=== PATIENT | female | born 1940 | race Caucasian/White ===

== ENCOUNTER 2017-03-16 21:07 | Inpatient (IN) | payer OTHER ==
[~2017-03-16] VITALS: Ht 157.5 cm; Wt 84.6 kg
[2017-03-17] VITALS (7 sets, daily range): BP systolic 111–136; BP diastolic 51–60; Ht 157.5 cm; Wt 84.6 kg
[2017-03-17 03:43] LABS: BASOPHIL % 0.2 % (0-2); PLATELET COUNT 164 x10^3mcL (130-400)
[2017-03-17 03:52] LABS: CARBON DIOXIDE 31.8 mmol/L (21-32); CHLORIDE SERUM 96 mmol/L (98-107); CREATININE SERUM 1.1 mg/dL (0.6-1.0); GLUCOSE SERUM 177 mg/dL (74-106); SODIUM SERUM 136 mmol/L (136-145)
[2017-03-17 03:59] LABS: ALBUMIN 3.5 g/dL (3.4-5.0); ALKALINE PHOSPHATASE 80 U/L (46-116); ALT/SGPT 20 U/L (14-59); AST/SGOT 20 U/L (15-37); BILIRUBIN TOTAL 0.5 mg/dL (0.20-1.00); CHOLESTEROL 145 mg/dL (<200); HDL CHOLESTEROL 54 mg/dL (40-60); TOTAL PROTEIN, SERUM 7.9 g/dL (6.4-8.2)
[2017-03-17 07:08] LABS: PHOSPHOROUS 4.8 mg/dL (2.5-4.9)
[2017-03-17 07:17] LABS: FREE T4 1.28 ng/dL (0.76-1.46)
[2017-03-17 07:20] LABS: T3 TOTAL 0.87 ng/mL
[2017-03-17 07:29] LABS: CHOLESTEROL/HDL RATIO 2.6
[2017-03-17 07:37] LABS: T4(THYROXINE) 9.4 ug/dL (4.7-13.3)
[2017-03-17 08:24] LABS: MAGNESIUM 2.1 mg/dL (1.8-2.4)
[2017-03-17] MEDS ORDERED: SIMVASTATIN10 M1 PO (08:53)
[2017-03-17] MEDS ORDERED: NEURONTIN100 MG PO (08:54)
[2017-03-17] MEDS ORDERED: METFORMIN HCL500 MG PO (08:56)
[2017-03-17 11:17] LABS: microscopic required? YES; urine erythrocyte 1+ (NEGATIVE)
[2017-03-18 05:44] VITALS: BP 135/61
[2017-03-18 06:45] LABS: BASOPHIL % 0.2 % (0-2); PLATELET COUNT 136 x10^3mcL (130-400); RED CELL DISTRIBUTION WIDTH 13.4 % (11.5-14.5)
[2017-03-18 07:27] LABS: CALCIUM 8.5 mg/dL (8.5-10.1); CARBON DIOXIDE 29.6 mmol/L (21-32); CHLORIDE SERUM 105 mmol/L (98-107); CREATININE SERUM 0.6 mg/dL (0.6-1.0); GLUCOSE SERUM 165 mg/dL (74-106); MAGNESIUM 1.8 mg/dL (1.8-2.4); PHOSPHOROUS 3.1 mg/dL (2.5-4.9); POTASSIUM SERUM 4.2 mmol/L (3.5-5.1); SODIUM SERUM 142 mmol/L (136-145)
[2017-03-18 09:08] VITALS: BP 116/54
[2017-03-18 12:05] VITALS: BP 126/59
[2017-03-18 16:15] VITALS: BP 114/56
[2017-03-18 22:21] VITALS: BP 111/57
[2017-03-19 05:50] VITALS: BP 121/56
[2017-03-19 09:04] LABS: BASOPHIL % 0.3 % (0-2); PLATELET COUNT 136 x10^3mcL (130-400); RED CELL DISTRIBUTION WIDTH 13.3 % (11.5-14.5)
[2017-03-19 09:28] LABS: CALCIUM 8.6 mg/dL (8.5-10.1); CARBON DIOXIDE 32.4 mmol/L (21-32); CHLORIDE SERUM 104 mmol/L (98-107); CREATININE SERUM 0.7 mg/dL (0.6-1.0); GLUCOSE SERUM 179 mg/dL (74-106); MAGNESIUM 1.6 mg/dL (1.8-2.4); POTASSIUM SERUM 4.3 mmol/L (3.5-5.1); SODIUM SERUM 143 mmol/L (136-145)
[2017-03-19 09:55] VITALS: BP 149/69
[2017-03-19] MEDS ORDERED: TAM75 PO (10:22)
[2017-03-19] MEDS ORDERED: ECO81 PO (10:23)
[2017-03-19] MEDS ORDERED: LAC PO (10:37)
[2017-03-19] MEDS ORDERED: LEVAQUIN750 MG PO (10:41)
[2017-03-19] MEDS ORDERED: ROBITUSSIN W/CODEINE PO (10:44)
[2017-03-19] MEDS ORDERED: LOTREL1 CA2 PO (12:10)
[2017-03-19] MEDS ORDERED: AUG500 PO (13:27)
[2017-03-19] MEDS ORDERED: FLA500 PO (13:27)
[2017-03-19 13:50] VITALS: BP 125/59
[2017-03-19] MEDS ORDERED: ROBL PO (16:10)
== END 2017-03-19 16:33 | disposition home or self-care (01) | DRG 177 ==
LOC: ED 21:07 → DU 03-17 02:59
PROVIDERS: Emergency Medicine; Family Medicine
DX: J69.0 Pneumonitis due to inhalation of food and vomit (principal); N17.0 Acute kidney failure with tubular necrosis; J09.X2 Influenza due to identified novel influenza A virus with other respiratory manifestations; M94.0 Chondrocostal junction syndrome [Tietze]; K59.00 Constipation, unspecified; R31.29 Other microscopic hematuria; E11.65 Type 2 diabetes mellitus with hyperglycemia; E11.51 Type 2 diabetes mellitus with diabetic peripheral angiopathy without gangrene; E66.3 Overweight; Z68.32 Body mass index [BMI] 32.0-32.9, adult; Z87.891 Personal history of nicotine dependence; Z79.84 Long term (current) use of oral hypoglycemic drugs
CPT/HCPCS: 82962; 83880; 84439; 87804; 94150; J0132; J1200; J1956; J2405; J2930; J3490; J7030; J7613; J7620; Q0092